=== PATIENT | female | born 1950 | race Caucasian/White ===

== ENCOUNTER → 2020-10-25 | Outpatient (REF) ==
[~2020-10-25] MED LIST: PROVENTIL0.083 % IN; PROZAC10 MG PO; SEROQUEL100 MG PO
== END | disposition home or self-care (01) | DRG 812 ==
LOC: LAB 14:18
PROVIDERS: ATTEND Family Medicine
DX: D64.9 Anemia, unspecified (principal)

== ENCOUNTER 2020-12-06 14:00 | Emergency (ER) | payer MEDICARE ==
[~2020-12-06] VITALS: Ht 170.2 cm; Wt 55.0 kg
[2020-12-06] VITALS (8 sets, daily range): BP systolic 138–167; BP diastolic 57–75
[2020-12-06 14:31] LABS: GFR > 60 ML/MIN (>=60 (CALC)); GFR FOR AFR.AMER. > 60 ML/MIN (>=60 (CALC)); IMMATURE GRANULOCYTES 0.2 % (0.0-5.0); MEAN CELL VOLUME 83.2 fL CALC (80.0-100.0); MEAN CORPUSCULAR HGB 25.7 pG CALC (26.0-32.0); NEUT# 11.78 thou/uL (2.00-7.15); RED BLOOD COUNT 2.02 mill/uL (4.20-5.60); RED CELL DISTRI WIDTH 17.7 % (11.5-15.5)
[2020-12-06 14:39] LABS: HEMATOCRIT 16.8 % (37.0-47.0); HEMOGLOBIN 5.2 g/dl (12.0-16.0)
[2020-12-06 14:45] LABS: ACT PARTIAL THROMBO TIME 26.5 SECONDS (20.0-32.5); ALBUMIN 3.9 g/dL (3.2-5.0); ALKALINE PHOSPHATASE 105 u/l (38-126); ANION GAP 19 (6-22 (CALC)); BILIRUBIN, TOTAL 0.3 mg/dL (0.0-1.4); BUN 19 mg/dL (8-23); BUN/CREATININE RATIO 22 (12-20 (CALC)); CARBON DIOXIDE 19 mmol/l (22-30); CHLORIDE 99 mmol/l (95-108); CREATININE 0.8 mg/dL (0.5-1.0); GFR > 60 ML/MIN (>=60 (CALC)); GFR FOR AFR.AMER. > 60 ML/MIN (>=60 (CALC)); INTERNATIONAL NORMALIZED RATIO 0.9 RATIO (0.7-1.3); POTASSIUM 4.5 mmol/l (3.5-5.1); PROTHROMBIN TIME 9.9 SECONDS (9.0-12.5); SGOT/AST 20 u/l (9-36); SODIUM 133 mmol/l (137-146); TOTAL PROTEIN 7.2 g/dL (6.3-8.2)
[2020-12-06 14:56] LABS: MYOGLOBIN 61 ng/mL (0 - 62)
== END 2020-12-06 21:00 | disposition short-term general hospital (02) ==
LOC: ED 14:00
PROVIDERS: Family Medicine
PROC: 30233N1 Transfusion of Nonautologous Red Blood Cells into Peripheral Vein, Percutaneous Approach (ICD-10-PCS; principal; 2020-12-06)
PROC: 30233N1 Transfusion of Nonautologous Red Blood Cells into Peripheral Vein, Percutaneous Approach (ICD-10-PCS; 2020-12-06)
DX: R91.8 Other nonspecific abnormal finding of lung field (principal); D64.9 Anemia, unspecified; R19.5 Other fecal abnormalities; K76.9 Liver disease, unspecified; F31.9 Bipolar disorder, unspecified; F17.290 Nicotine dependence, other tobacco product, uncomplicated; J45.909 Unspecified asthma, uncomplicated; Z20.822 Contact with and (suspected) exposure to COVID-19
CPT/HCPCS: P9016; Q9967

== ENCOUNTER 2021-01-15 08:33 | Day surgery (SDC) | payer MEDICARE ==
[~2021-01-15] VITALS: Ht 170.2 cm; Wt 59.0 kg
[~2021-01-15 08:33] MED LIST changes: +PERCOCET 5/325M1 TAB PO; +PROTONIX20 M1 PO; +VIT C/ACEROL500 M1 PO; +ZINC50 MG PO
[2021-01-15 11:11] VITALS: BP 145/65
== END 2021-01-15 11:15 | disposition home or self-care (01) ==
LOC: ENDO 08:33 → ORM 09:50 → ENDO 11:15
PROVIDERS: ATTEND Surgery
PROC: 0DJD8ZZ Inspection of Lower Intestinal Tract, Via Natural or Artificial Opening Endoscopic (ICD-10-PCS; principal; 2021-01-15)
PROC: 0DJ08ZZ Inspection of Upper Intestinal Tract, Via Natural or Artificial Opening Endoscopic (ICD-10-PCS; 2021-01-15)
DX: D50.9 Iron deficiency anemia, unspecified (principal); C34.90 Malignant neoplasm of unspecified part of unspecified bronchus or lung; K44.9 Diaphragmatic hernia without obstruction or gangrene

== ENCOUNTER 2022-06-14 14:49 | Emergency (ER) | payer OTHER ==
[~2022-06-14] VITALS: Ht 170.2 cm; Wt 63.5 kg
[2022-06-14 14:54] VITALS: BP 137/64
[2022-06-14 15:01] VITALS: BP 113/71
[2022-06-14 17:02] VITALS: BP 113/71
== END 2022-06-14 17:09 | disposition home or self-care (01) | DRG 395 ==
LOC: ED 14:49
DX: T18.120A Food in esophagus causing compression of trachea, initial encounter (principal); X58.XXXA Exposure to other specified factors, initial encounter

== ENCOUNTER 2022-07-31 07:37 | Day surgery (SDC) | payer OTHER ==
[~2022-07-31] VITALS: Ht 170.2 cm; Wt 61.7 kg
[~2022-07-31 07:37] MED LIST changes: +TRELEGY ELLIPTA1 AER
[2022-07-31] MEDS ORDERED: TRAMADOL HYDROC50 M1 PO (09:07)
[2022-07-31 10:07] VITALS: BP 158/71
== END 2022-07-31 09:50 | disposition home or self-care (01) | DRG 437 ==
LOC: ORM 07:37
PROVIDERS: ATTEND Surgery
PROC: 0JH63WZ Insertion of Totally Implantable Vascular Access Device into Chest Subcutaneous Tissue and Fascia, Percutaneous Approach (ICD-10-PCS; principal; 2022-07-31)
PROC: 02HV33Z Insertion of Infusion Device into Superior Vena Cava, Percutaneous Approach (ICD-10-PCS; 2022-07-31)
PROC: B518ZZA Fluoroscopy of Superior Vena Cava, Guidance (ICD-10-PCS; 2022-07-31)
DX: C78.7 Secondary malignant neoplasm of liver and intrahepatic bile duct (principal); J44.9 Chronic obstructive pulmonary disease, unspecified; Z85.118 Personal history of other malignant neoplasm of bronchus and lung
CPT/HCPCS: J0690

== ENCOUNTER 2022-08-27 16:16 | Emergency (ER) | payer OTHER ==
[2022-08-27] VITALS (15 sets, daily range): BP systolic 114–137; BP diastolic 65–88
[~2022-08-27] VITALS: Ht 170.2 cm; Wt 61.8 kg
[~2022-08-27 16:16] MED LIST changes: +TRAMADOL HYDROC50 M1 PO
[2022-08-27 19:06] LABS: ALBUMIN 3.9 g/dL (3.2-5.0); CREATININE 1.3 mg/dL (0.5-1.0); POTASSIUM 3.6 mmol/l (3.5-5.1); TOTAL PROTEIN 6.9 g/dL (6.3-8.2)
[2022-08-27 19:07] LABS: BASO% 1.3 % (0-3); EOS% 0.6 % (0-8); HEMATOCRIT 26.4 % (37.0-47.0); HEMOGLOBIN 8.9 g/dl (12.0-16.0); IMMATURE GRANULOCYTES 0.6 % (0.0-5.0); LYMPH% 37.8 % (15-41); MEAN CELL VOLUME 88.3 fL CALC (80.0-100.0); MEAN CORPUSCULAR HGB 29.8 pG CALC (26.0-32.0); MEAN CORPUSCULAR HGB CONC 33.7 g/dL CAL (32.0-36.0); NEUT# 0.68 thou/uL (2.00-7.15); NEUT% 43.7 % (42-76); RED BLOOD COUNT 2.99 mill/uL (4.20-5.60); RED CELL DISTRI WIDTH 18.9 % (11.5-15.5)
[2022-08-27 19:08] LABS: BILIRUBIN, TOTAL 1.1 mg/dL (0.02-1.3)
[2022-08-27] MEDS ORDERED: MIRALAX17 GM PO (20:18)
== END 2022-08-27 21:21 | disposition home or self-care (01) | DRG 392 ==
LOC: ED 16:16
PROVIDERS: Nurse Practitioner
DX: K59.00 Constipation, unspecified (principal); D70.1 Agranulocytosis secondary to cancer chemotherapy; T45.1X5A Adverse effect of antineoplastic and immunosuppressive drugs, initial encounter; C34.90 Malignant neoplasm of unspecified part of unspecified bronchus or lung; J44.9 Chronic obstructive pulmonary disease, unspecified

== ENCOUNTER 2022-10-08 12:46 | Observation (INO) | payer OTHER, MEDICARE, MEDICAID ==
[~2022-10-08] VITALS: Ht 170.2 cm; Wt 61.9 kg
[2022-10-08] VITALS (16 sets, daily range): BP systolic 86–133; BP diastolic 53–77
[~2022-10-08 12:46] MED LIST changes: +ALBUTEROL SUL0.083 % IN; +MIRALAX17 GM PO; +OMNICEF300 MG PO; +PREDNISONE10 MG PO
--- NOTE | 2022-10-08 12:50 | NUR ---
PT TO ROOM 10 VIA W/C, CALL LIGHT IN REACH, PROVIDER NOTIFIED AND IMMEDIATELY IN ROOM.
[2022-10-08 13:34] LABS: ALBUMIN 3.6 g/dL (3.2-5.0); TOTAL PROTEIN 6.7 g/dL (6.3-8.2)
[2022-10-08 13:39] LABS: BILIRUBIN, TOTAL 0.9 mg/dL (0.02-1.3); CREATININE 1.9 mg/dL (0.5-1.0); POTASSIUM 3.4 mmol/l (3.5-5.1)
[2022-10-08 13:48] LABS: BASO% 0.6 % (0-3); HEMATOCRIT 28.8 % (37.0-47.0); HEMOGLOBIN 9.9 g/dl (12.0-16.0); IMMATURE GRANULOCYTES 1.7 % (0.0-5.0); LYMPH% 22.7 % (15-41); MEAN CORPUSCULAR HGB 32.7 pG CALC (26.0-32.0); MEAN CORPUSCULAR HGB CONC 34.4 g/dL CAL (32.0-36.0); MONO% 17.4 % (2-13); NEUT# 0.99 thou/uL (2.00-7.15); NEUT% 57.6 % (42-76); RED BLOOD COUNT 3.03 mill/uL (4.20-5.60); RED CELL DISTRI WIDTH 16.2 % (11.5-15.5)
--- NOTE | 2022-10-08 13:53 | NUR ---
Reassessment of patient completed. No distress noted. VSS, CALL LIGHT IN REACH, AT BEDSIDE, NO COMPLAINTS AT THIS TIME.
--- NOTE | 2022-10-08 15:18 | NUR ---
PT ASSISTED TO BSC, CALL LIGHT IN REACH, NO COMPLAINTS AT THIS TIME, PO FLUIDS AND SNACK GIVEN, AT BEDSIDE.
--- NOTE | 2022-10-08 15:25 | NUR ---
REPORT CALLED TO [facility] NURSE BRYN. PT HAS ON TELE BOX # 10.
[2022-10-08 15:51] LABS: URINE BILIRUBIN - DIPSTICK Negative (NEGATIVE); URINE BLOOD DIPSTICK Trace-lysed (NEGATIVE); URINE GLUCOSE - DIPSTICK Negative (NEGATIVE); URINE KETONE Negative (NEGATIVE); URINE LEUK ESTERASE Negative (NEGATIVE); URINE NITRITE - DIPSTICK Negative (Negative); URINE PH 5.5 (4.5-8.0); URINE PROTEIN - DIPSTICK 30 mg/dL (NEG-TRACE); URINE UROBILINOGEN - DIPSTICK 0.2 E.U./dL (0.2)
--- NOTE | 2022-10-08 15:54 | NUR ---
PT TO [facility] ROOM 272 VIA STRETCHER, ALL BELONGINS SENT WITH PT, TED, ON TELE #10, AT SIDE.
[2022-10-08 15:56] LABS: URINE COLOR Yellow; URINE RBC 0-2 RBC/hpf (0-5); URINE SQUAMOUS EPITHELIAL CELL FEW EPI/hpf (0-FEW); URINE WBC 0-2 WBC/hpf (0-5)
--- NOTE | 2022-10-08 16:54 | NUR ---
PATIENT RESTING IN NO DISTRESS GAVE TYLENOL FOR HEADACHE. PATIENT ASKING FOR TUMS WILL REACH OUT TO MD. CALL LIGHT WITHIN REACH.
--- NOTE | 2022-10-08 19:40 | NUR ---
BEDSIDE REPORT RECIEVED. PT A/OX3. RESPIRATIONS EVEN AND UNLABORED ON ROOM AIR. LUNG SOUNDS COURSE. NEB TREATMENT TO BE PROVIDED. PT DENIES OF COUGH. HEART RHYTHM NORMAL WITH TELE ON PLACE. BOWEL SOUNDS ACTIVE. #18G RAC LEAKING. NEW #22G RFA STARTED, INFUSING WITH IVF PER EMAR. PT C/O OF HEADACHE, ICE PACK PROVIDED AND TYLENOL TO BE ADMINISTERED WHEN DUE. PT DENIES OF ANY ADDITIONAL NEEDS AT THIS TIME. PT ORIENTED TO ROOM AND CALL LIGHT SYSTEM. ALL SAFETY PRECAUTIONS ARE IN PLACE WITH CALL LIGHT IN REACH. REVERSE ISOLATION IN PLACE.
[2022-10-09 00:19] VITALS: BP 112/61
--- NOTE | 2022-10-09 00:46 | NUR ---
PT RESTING IN LOW FOWLERS POSITION. RESPIRATIONS EVEN AND UNLABORED ON ROOM AIR. TELE MONITORING IN PLACE. IVF INFUSING PER ORDER. PT DENIES OF ANY NEEDS. ALL SAFETY PRECAUTIONS ARE IN PLACE WITH CALL LIGHT IN REACH
--- NOTE | 2022-10-09 04:12 | NUR ---
PT SLEEPING IN LOW FOWLERS POSITION. RESPIRATIONS EVEN AND UNLABORED ON ROOM AIR. IVF INFUSING PER ORDER. TELE MONITORING IN PLACE. NO S/S OF DISTRESS. ALL SAFETY PRECAUTIONS ARE IN PLACE WITH CALL LIGHT IN REACH.
[2022-10-09 04:29] VITALS: BP 108/62
[2022-10-09 06:09] LABS: ALKALINE PHOSPHATASE 105 u/l (38-126); BUN 36 mg/dL (8-23); BUN/CREATININE RATIO 36 (12-20 (CALC)); CARBON DIOXIDE 20 mmol/l (22-30); GFR FOR AFR.AMER. > 60 ML/MIN (>=60 (CALC)); GFR OTHER RACES 55 ML/MIN (>=60 (CALC)); MAGNESIUM 2.1 mg/dL (1.6-2.3); POTASSIUM 3.8 mmol/l (3.5-5.1); SGOT/AST 29 u/l (9-36); SODIUM 128 mmol/l (137-146)
[2022-10-09 06:12] LABS: HEMATOCRIT 24.8 % (37.0-47.0); HEMOGLOBIN 8.6 g/dl (12.0-16.0); LYMPH% 21.8 % (15-41); MEAN CELL VOLUME 96.1 fL CALC (80.0-100.0); MEAN CORPUSCULAR HGB 33.3 pG CALC (26.0-32.0); MEAN CORPUSCULAR HGB CONC 34.7 g/dL CAL (32.0-36.0); MONO% 12.7 % (2-13); NEUT# 0.72 thou/uL (2.00-7.15); NEUT% 65.5 % (42-76); RED BLOOD COUNT 2.58 mill/uL (4.20-5.60); RED CELL DISTRI WIDTH 16.5 % (11.5-15.5)
--- NOTE | 2022-10-09 06:14 | NUR ---
CRTICIAL WBC OF 1.1 RECIEVED FROM RR IN LAB. MD AWARE, TREATMENT PLAN IN PLACE.
[2022-10-09 06:16] VITALS: BP 128/76
[2022-10-09 06:23] LABS: ALBUMIN 2.8 g/dL (3.2-5.0); ANION GAP 12 (6-22 (CALC)); BILIRUBIN, TOTAL 0.4 mg/dL (0.02-1.3); CHLORIDE 100 mmol/l (95-108); TOTAL PROTEIN 5.2 g/dL (6.3-8.2)
--- NOTE | 2022-10-09 07:15 | NUR ---
PERFROMED BEDSIDE REOPRT WITH IS MANAGER NURSE. PT SITTING UP FOWLERS IN BED, RESPIRATORY THERAPY IN RM AT THIS TIME. PT IS A/OX3, ON RM AIR, DENIES ANY PAIN. TELE MONITOR IN PLACE. EDUCATED PT ON PLAN OF CARE. CALL LIGHT WITHIN REACH AND SAFETY PRECAUTIONS IN PLACE.
[2022-10-09 11:03] VITALS: BP 141/50
[2022-10-09 15:20] VITALS: BP 138/71
[2022-10-09 18:35] VITALS: BP 114/57
--- NOTE | 2022-10-09 20:15 | NUR ---
PT IS SITTING UP IN THE BED. NO COMPLAINTS OF PAIN OR DISCOMFORT AT THIS TIME. RECEIVED REPORT FROM DAYSHIFT NURSE. SAFETY PRECATIONS IN PLACE AND CALL LIGHT WITHIN REACH.
[2022-10-10] VITALS (8 sets, daily range): BP systolic 110–138; BP diastolic 57–71
--- NOTE | 2022-10-10 00:05 | NUR ---
PT IS SLEEPING IN BED COMFROTABLY. NO SIGNS OF PAIN OR DISCOMFORT.SAFETY PRECAUTIONS IN PLACE AND CALL LIGHT WITHIN REACH.
[2022-10-10 05:29] LABS: ALBUMIN 2.6 g/dL (3.2-5.0); ALKALINE PHOSPHATASE 97 u/l (38-126); ANION GAP 12 (6-22 (CALC)); BILIRUBIN, TOTAL 0.3 mg/dL (0.02-1.3); BUN 36 mg/dL (8-23); BUN/CREATININE RATIO 40 (12-20 (CALC)); CARBON DIOXIDE 18 mmol/l (22-30); CHLORIDE 103 mmol/l (95-108); CREATININE 0.9 mg/dL (0.5-1.0); GFR FOR AFR.AMER. > 60 ML/MIN (>=60 (CALC)); GFR OTHER RACES > 60 ML/MIN (>=60 (CALC)); POTASSIUM 3.5 mmol/l (3.5-5.1); SGOT/AST 33 u/l (9-36); SODIUM 129 mmol/l (137-146); TOTAL PROTEIN 5.1 g/dL (6.3-8.2)
[2022-10-10 05:32] LABS: HEMATOCRIT 22.8 % (37.0-47.0); HEMOGLOBIN 7.8 g/dl (12.0-16.0); IMMATURE GRANULOCYTES 3.2 % (0.0-5.0); LYMPH% 18.5 % (15-41); MEAN CELL VOLUME 96.6 fL CALC (80.0-100.0); MEAN CORPUSCULAR HGB 33.1 pG CALC (26.0-32.0); MEAN CORPUSCULAR HGB CONC 34.2 g/dL CAL (32.0-36.0); MONO% 18.5 % (2-13); NEUT# 0.94 thou/uL (2.00-7.15); NEUT% 59.8 % (42-76); RED BLOOD COUNT 2.36 mill/uL (4.20-5.60); RED CELL DISTRI WIDTH 16.6 % (11.5-15.5)
--- NOTE | 2022-10-10 07:35 | NUR ---
PERFROMED BEDSIDE REPORT WITH NIGHTSHIFT NURSE. PT NOTED LAYING SEMI FOWLERS IN BED, ICE PACK ON FOREHEAD. PT IS A/OX3, RM AIR, DENIES ANY PAIN. STATES ICE PACK IS BECAUSE "FEELING HOT" EDUCATED PT ON PLAN OF CARE TODAY. CALL LIGHT WITHIN REACH AND SAFETY PRECAUTIONS IN PLACE.
--- NOTE | 2022-10-10 19:00 | NUR ---
REPORT RECEIVED FROM Raphael MONTIEL LPN, CARE OF PT ASSUMED AT THIS TIME.
--- NOTE | 2022-10-10 20:30 | NUR ---
PT UP IN BATHROOM WASHING UP AT SINK. BED LINENS CHANGED AT THIS TIME. PLAN OF CARE REVIEWED. PT DENIES NEEDS AT THIS TIME. CALL AVILA WITHIN REACH, AGREES TO CALL PRN.
--- NOTE | 2022-10-11 | NUR ---
PT LAYING IN BED, EYES CLOSED, APPEARS TO BE SLEEPING COMFORTABLY, NO APPARENT DISTRESS, RESPIRATIONS REGULAR & UNLABORED. CALL AVILA REMAINS WITHIN REACH.
--- NOTE | 2022-10-11 03:30 | NUR ---
PERFORMED BEDSIDE REPORT WITH NIGHTSHIFT NURSE. PT NOTED LAYING SEMI FOWLERS IN BED, RESTING COMFORTABLY AT THIS TIME. NO S/S OF DISTRESS. CALL LIGHT WITHIN REACH AND SAFETY PRECAUTIONS IN PLACE.
[2022-10-11 04:33] VITALS: BP 136/78
[2022-10-11 06:02] VITALS: BP 136/78
[2022-10-11 06:56] VITALS: BP 129/76
--- NOTE | 2022-10-11 08:30 | NUR ---
PT IS SITTING UP FOWLERS IN BED, RECEIVED MORNING MEDICATIONS PER EMAR. PT STATES "FEELING BETTER" AT THIS TIME. EDUCATED ON PLAN OF CARE AND MED SCHEDULE FOR TODAY CALL LIGHT WITHIN REACH AND SAFETY PRECAUTIONS IN PLACE.
[2022-10-11 09:36] LABS: BASO% 0.3 % (0-3); HEMATOCRIT 26.8 % (37.0-47.0); IMMATURE GRANULOCYTES 3.8 % (0.0-5.0); LYMPH% 14.4 % (15-41); MEAN CELL VOLUME 99.3 fL CALC (80.0-100.0); MEAN CORPUSCULAR HGB 33.3 pG CALC (26.0-32.0); MEAN CORPUSCULAR HGB CONC 33.6 g/dL CAL (32.0-36.0); MONO% 13.1 % (2-13); NEUT# 2.51 thou/uL (2.00-7.15); NEUT% 68.4 % (42-76); RED BLOOD COUNT 2.7 mill/uL (4.20-5.60); RED CELL DISTRI WIDTH 17.4 % (11.5-15.5)
[2022-10-11 09:44] LABS: ANION GAP 13 (6-22 (CALC)); BUN 31 mg/dL (8-23); BUN/CREATININE RATIO 37 (12-20 (CALC)); CARBON DIOXIDE 19 mmol/l (22-30); CHLORIDE 101 mmol/l (95-108); CREATININE 0.9 mg/dL (0.5-1.0); GFR FOR AFR.AMER. > 60 ML/MIN (>=60 (CALC)); GFR OTHER RACES > 60 ML/MIN (>=60 (CALC)); POTASSIUM 3.8 mmol/l (3.5-5.1); SODIUM 130 mmol/l (137-146)
[2022-10-11 10:58] VITALS: BP 137/79
--- NOTE | 2022-10-11 12:15 | NUR ---
PT IS SITTING UP FOWLERS IN BED, EATING LUNCH AT THIS TIME. DENIES ANY PAIN, NO S/S OF DISTRESS. CALL LIGHT WITHIN REACH AND SAFETY PRECAUTIONS IN PLACE.
--- NOTE | 2022-10-11 13:31 | NUR ---
CONTACTED DR LARA'S OFFICE IN REFERENCE TO A PHYSICIAN CONSULT. I SPOKE WITH ELLEN (ANSWERING SERVICE) AT [phone] HRS.
[2022-10-11 15:45] VITALS: BP 143/72
--- NOTE | 2022-10-11 18:03 | NUR ---
PT IS SITTING UP IN CHAIR, EATING DINNER AT THIS TIME. DENIES ANY PAIN. NO S/S OF DISTRESS. CALL LIGHT WITHIN REACH AND SAFETY PRECAUTIONS IN PLACE.
[2022-10-11 20:05] VITALS: BP 173/87
--- NOTE | 2022-10-11 22:43 | NUR ---
RECEIVED BEDSIDE SHIFT REPORT AT START OF SHIFT. PT ALERT AND ORIENTED X 3. LYING IN BED, HOB ELEVATED. IN WITH PT. PT ON TELE. BED IS LOCKED. TOP BED RAILS UP. CALL LIGHT IN REACH.
[2022-10-12 00:05] VITALS: BP 145/83
[2022-10-12 04:00] VITALS: BP 106/76
[2022-10-12 06:21] LABS: ALBUMIN 2.6 g/dL (3.2-5.0); BUN 27 mg/dL (8-23); CARBON DIOXIDE 20 mmol/l (22-30); CHLORIDE 105 mmol/l (95-108); CREATININE 0.8 mg/dL (0.5-1.0); GFR FOR AFR.AMER. > 60 ML/MIN (>=60 (CALC)); GFR OTHER RACES > 60 ML/MIN (>=60 (CALC)); MAGNESIUM 1.8 mg/dL (1.6-2.3); POTASSIUM 4.1 mmol/l (3.5-5.1); SODIUM 132 mmol/l (137-146)
[2022-10-12 06:55] VITALS: BP 158/80
--- NOTE | 2022-10-12 07:41 | NUR ---
BEDSIDE SHIFT REPORT, PT AWAKE ALERT AND ORIENTED SITTING UP IN RECLINER, NO C/O DISCOMFORT AT THIS TIME, IVF 0.9 NS INFUSING @ 75ML/HR TO SITE IN RAC, TELE MONITOR IN PLACE, CALL AVILA IN REACH.
[2022-10-12 10:27] VITALS: BP 159/68
--- NOTE | 2022-10-12 12:00 | NUR ---
STABLE CONDITION, STATES SHE WANTS TO GO HOME, ADVISED MD WILL ROUND SOON AND DISCUSS PLANS WITH HER.
--- NOTE | 2022-10-12 12:00 | NUR ---
PT REPORTS SHE FEELS MUCH BETTER AND WANTS TO GO HOME, ALL NEEDS MET/ADDRESSED, WILL CONTINUE TO MONITOR.
[2022-10-12 16:03] VITALS: BP 157/82
[2022-10-12] MEDS ORDERED: OMNICEF300 MG PO (16:11)
[2022-10-12] MEDS ORDERED: TAMIFLU SUSP 6MG/ML PO (16:13)
--- NOTE | 2022-10-12 16:38 | NUR ---
REATING IN BED AND ANXIOUSLY AWAITING D/C
--- NOTE | 2022-10-12 17:08 | NUR ---
Discharge instructions given. Patient verbalizes understanding of same. Discharged in fair condition via Wheelchair to Home with spouse. All belongings sent with pt.
== END 2022-10-12 17:04 | disposition home health service (06) | DRG 194 ==
LOC: ED 12:46 → ED-I 14:10 → ED 14:43 → MS2 14:44
PROVIDERS: Family Medicine; Internal Medicine Nephrology; Nurse Practitioner Family; Student in an Organized Health Care Education/Training Program; ADMIT Internal Medicine; ATTEND Internal Medicine
DX: J10.1 Influenza due to other identified influenza virus with other respiratory manifestations (principal); C34.90 Malignant neoplasm of unspecified part of unspecified bronchus or lung; N17.9 Acute kidney failure, unspecified; E87.1 Hypo-osmolality and hyponatremia; C78.7 Secondary malignant neoplasm of liver and intrahepatic bile duct; D64.9 Anemia, unspecified; E87.20 Acidosis, unspecified; D70.9 Neutropenia, unspecified; I95.9 Hypotension, unspecified; J43.9 Emphysema, unspecified